=== PATIENT | male | born 1960 ===

== ENCOUNTER → 2019-07-27 | Outpatient (CLI) | payer BC | LOC: GMA MATASK 17:37 | PROVIDERS: ATTEND Family Medicine | DX: E78.2 Mixed hyperlipidemia (principal); R73.09 Other abnormal glucose ==

== ENCOUNTER → 2020-08-29 | Outpatient (CLI) | payer BC | LOC: GMA MATASK 11:14 | PROVIDERS: ATTEND Family Medicine | DX: Z00.00 Encounter for general adult medical examination without abnormal findings (principal); Z12.5 Encounter for screening for malignant neoplasm of prostate ==